=== PATIENT | female | born 1965 | race Caucasian/White ===

== ENCOUNTER 2017-10-15 09:10 | Emergency (ER) | payer SELFPAY ==
[~2017-10-15 09:10] MED LIST: Sodium Chloride 0.9% 1,000 ML BAG ONE
[2017-10-15] MEDS ORDERED: Metoclopramide HCl 10 MG/2 ML VIAL ONE (10:14)
[2017-10-15] MEDS ORDERED: Ondansetron HCl/PF 4 MG/2 ML Vial ONE (10:14)
[2017-10-15] MEDS ORDERED: Diphenoxylate HCl/Atropine Tablet ONE (10:14)
[2017-10-15 10:35] LABS: ALT (SGPT) 10 U/L (8-55); AST (SGOT) 15 U/L (5-34); Albumin 4.3 g/dL (3.5-5.0); Alkaline Phosphatase 50 U/L (40-150); Anion Gap 16 mmol/L (10-20); BUN (Urea Nitrogen) 7 mg/dL (9.8-20.1); Bilirubin, Total 0.5 mg/dL (0.2-1.2); Calc. Creatinine Clearance 0 mL/min (70-130); Calcium 9.1 mg/dL (7.8-10.44); Carbon Dioxide 22 mmol/L (22-29); Chloride 104 mmol/L (98-107); Estimated GFR-MDRD 84; Globulin 3.2 g/dL (2.4-3.5); Glucose 99 mg/dL (70-105); Lipase 86 U/L (8-78); Potassium 3.6 mmol/L (3.5-5.1); Protein, Total 7.5 g/dL (6.0-8.3); Sodium 138 mmol/L (136-145)
[2017-10-15 10:36] LABS: Bilirubin Negative (Negative); Blood, Urine Small (Negative); Clarity Clear (Clear); Glucose, Urine (Dipstick) Negative (Negative); Leukocyte Small (Negative); Nitrite Positive (Negative); Protein, Urine (Dipstick) Negative (Neg-Trace)
[2017-10-15 10:37] LABS: Specific Gravity, Urine 1.006 (1.002-1.036)
[2017-10-15 10:38] LABS: Bacteria/HPF Rare-Few HPF (None Seen); Squamous Epithelial 0-3 HPF (0-3); WBC/HPF 0-3 HPF (0-3)
[2017-10-15 10:46] LABS: Anisocytosis MODERATE=16-30 cells (100X) (0-5/hpf); Hemoglobin 7.1 g/dL (12.0-16.0); Hypochromia MODERATE=16-30 cells (100X) (0-5/hpf); Lymphocytes 17 % (21-51); MDiff Complete? YES; Mean Corpuscular HGB CONC 28.2 g/dL (32.0-36.0); Mean Corpuscular Hemoglobin 17.3 pg (27.0-31.0); Mean Corpuscular Volume 61.5 fl (81.0-99.0); Mean Platelet Volume 6.2 fL (7.4-10.4); Metamyelocyte 1 % (0-0); Microcytosis MODERATE=15-30 cells (100X) (0-5/hpf); Monocytes 9 % (0-10); Myelocyte 1 % (0-0); Neutrophil 72 % (42-75); PLT Morphology Comment Appears Adequate; Platelet Count 296 thou/uL (130-400); Poikilocytosis MODERATE=16-30 cells (100X) (0-5/hpf); Polychromasia SLIGHT = 2-3 cells (100X) (0-2/hpf); RBC Distribution Width 16.3 % (11.5-14.5); Red Blood Cell (RBC) Count 4.12 mill/uL (4.20-5.40); White Blood Cell (WBC) Count 3.8 thou/uL (4.8-10.8)
[2017-10-15 11:03] LABS: RBC/HPF 0-3 HPF (0-3)
== END 2017-10-15 11:25 | disposition home or self-care (01) ==
LOC: MADERS 09:10
DX: B34.9 Viral infection, unspecified (principal)
CPT/HCPCS: 80053; 81001; 82150; 83690; 84443; 85025; 87086; 96361; 96374; 96375; J2405; J2765; J7050